=== PATIENT | male | born 1945 | race Caucasian/White ===

== ENCOUNTER 2018-06-26 15:04 | Emergency (ER) | payer MEDICARE, OTHER, SELFPAY ==
[2018-06-26 15:15] VITALS: BP 207/100; PULSE 87; RESP 15; TEMP 36.8; O2SAT 100; BMI 27.8
--- NOTE | 2018-06-26 15:22 | DI.RAD.S_ITS ---
PROCEDURE: XR CHEST 1V INDICATIONS: chest pain TECHNIQUE: One view of the chest was acquired. COMPARISON: [facility], , CHEST 1 VIEW, 01/01/2017, 0:30. FINDINGS: Surgical changes and devices: None. Lungs and pleura: No pleural effusions or pneumothorax. Calcified granuloma in right upper lung field is again seen. Increased interstitial lung markings in bilateral lung simeon are noted suggestive of pulmonary vascular congestion and mild pulmonary edema. Mediastinum: Mediastinal contours appear normal. Heart size is enlarged. Bones and chest wall: No suspicious bony lesions. Overlying soft tissues appear unremarkable. IMPRESSION: Pulmonary vascular congestion and suggestion of mild pulmonary edema. No definite focal infiltrate or gross pneumothorax. Dictated by: Mj Engel M.D. on 06/26/2018 at 15:44 Approved by: Mj Engel M.D. on 06/26/2018 at 15:51
[2018-06-26 15:31] VITALS: BP 206/101; PULSE 114; RESP 19; O2SAT 97
[2018-06-26 15:33] LABS: Add Manual Diff / Slide Review NO; Basophils Percent Auto 0.4 % (0-2); Eosinophils Percent Auto 1.5 % (2-4); Hematocrit 38.4 % (41-53); Hemoglobin 12.5 g/dL (13.5-17.5); Lymphocytes Percent Auto 15.5 % (25-40); Mean Corpuscular HGB Conc 32.5 % (30-36); Mean Corpuscular Hemoglobin 28.5 PG (26-34); Mean Corpuscular Volume 87.6 fL (80-100); Monocytes Percent Auto 10.5 % (3-14); Neutrophils Absolute Auto 8700 /uL (3000-5900); Neutrophils Percent Auto 72.1 % (50-75); Platelet Count 332 X10^3/uL (150-400); Red Blood Cell Count 4.38 X10^6/uL (4.5-5.9); Red Cell Distribution Width 13.5 % (11.6-14.8)
[2018-06-26] MEDS: SODIUM CHLORIDE 0.9% 1,000 ML 150 ML IV (15:35)
[2018-06-26] MEDS: ONDANSETRON 4 MG/2 ML INJ IV (15:35)
[2018-06-26 15:37] VITALS: BP 206/106; PULSE 102; RESP 18; O2SAT 100
--- NOTE | 2018-06-26 15:41 | PC.NURSE ---
sent from walk in clinic, reports , pt has been having diarrhea for 2 weeks, vomiting last week, also reports, wakes up with left arm pain, usually lasting for 15 minutes, better with resting. denies trauma. on arrival pt with nausea and vomiting, medicated for comfort. skin diaphoretic. pt remain alert and awake. monitor noted st depression, repeat ekg in progress at this time.
--- NOTE | 2018-06-26 15:42 | ED_ITS ---
HPI - Nausea/Vomiting/Diarrhea <Lenora Lomeli PA-C - Last Filed: 06/26/18 19:11> General Chief complaint: Nausea/Vomiting/Diarrhea Stated complaint: DIARRHEA, GENERAL MALAISE Time Seen by Provider: 06/26/18 15:15 Source: patient Mode of arrival: ambulatory Limitations: no limitations History of Present Illness HPI Narrative: This 73-year-old male comes in today due to persistent diarrhea for 2 weeks along with intermittent vomiting (he had not vomited in the last few days but started again prior to arrival here). He mentioned to nursing that he has been having some intermittent pain in his left arm which has mainly been present when he wakes up for about 15-20 minutes. He states it radiates down from his shoulder into all of the fingers. This has been present for 2 weeks also, not present now. Has happened occasionally when not at rest. He states there are no exacerbating features such as moving the arm or walking. He states that in addition to the nausea, vomiting, and diarrhea, he had onset of cold symptoms at the same time with congestion and cough. He denies any chest pain, abdominal pain, dyspnea, or wheeze. He denies any neck pain. He denies any new pain in his other extremities, no new swelling. He states that the diarrhea will occur 4-5 times daily if he does not take Imodium. Imodium does help (he took it this a.m. and no diarrhea). He has not had any blood in the stools. He has not had fever. States he has had chills intermittently. He denies any recent travel or exposures. He is not on any new medications aside from gabapentin which was started a month ago for chronic back pain which has not worsened. He has not taken his blood pressure medications today but states he is otherwise compliant. Related Data Home Medications Medication Instructions Recorded Confirmed aspirin 81 mg PO DAILY #0 11/16/16 06/26/18 atorvastatin [Lipitor] 10 mg PO DAILY #0 11/16/16 06/26/18 losartan [Cozaar] 100 mg PO DAILY #0 11/16/16 06/26/18 sitagliptin [Januvia] 100 mg PO DAILY #0 11/16/16 06/26/18 carvedilol [Coreg] 12.5 mg PO BID #0 01/01/17 06/26/18 A-C-E-zinc ox-cupric ox-lutein 1 tab PO DAILY 06/26/18 06/26/18 [[facility]] Contour Test Strips 06/26/18 06/26/18 Probiotic 1 dose PO DIRECTED 06/26/18 06/26/18 acetaminophen [Tylenol 8 Hour] 2 tab PO Q8H 06/26/18 06/26/18 docusate sodium [Stool Softener] 100 mg PO BID 06/26/18 06/26/18 gabapentin 300 mg PO BEDTIME 06/26/18 06/26/18 hydrocodone-acetaminophen 1 - 2 tab PO BEDTIME PRN 06/26/18 06/26/18 ketoconazole 1 applic TOPICAL DAILY 06/26/18 06/26/18 metformin 1,500 mg PO QPM 06/26/18 06/26/18 metformin [Glucophage XR] 1,000 mg PO QAM 06/26/18 06/26/18 naproxen sodium [Aleve] 440 mg PO DAILY PRN 06/26/18 06/26/18 nifedipine 60 mg PO BID 06/26/18 06/26/18 Previous Rx's Medication Instructions Recorded ondansetron [Zofran ODT] 4 mg PO Q6-8H PRN #10 tab 06/26/18 Allergies Allergy/AdvReac Type Severity Reaction Status Date / Time iodine AdvReac Mild NAUSEA Verified 06/26/18 15:15 Review of Systems <Lenora Lomeli PA-C - Last Filed: 06/26/18 19:11> Review of Systems All systems reviewed & are unremarkable except as noted in HPI and below Exam <Lenora Lomeli PA-C - Last Filed: 06/26/18 19:11> Narrative Exam Narrative: GENERAL APPEARANCE: Patient initally wretching, mildly diaphoretic, joking with me. Following Zofran patient appears comfortable HEENT: PERRL, EOMI, no scleral icterus NECK: Supple LUNGS: Somewhat coarse breath sounds at the bases, no wheeze, no cough on exam CHEST: Non tender to palpation HEART: Rate and rhythm regular, normal S1 and S2, no S3 or S4. ABDOMEN: Soft, nontender, nondistended, bowel sounds present x 4 quadrants, no masses palpable EXTREMITIES: Trace symmetric pitting, no cyanosis, no calf tenderness DERMATOLOGIC: No jaundice or exanthem NEUROLOGIC: Alert and oriented with normal speech and coordination Initial Vital Signs Initial Vital Signs: Vital Signs Temperature 98.3 F 06/26/18 15:15 Pulse Rate 87 06/26/18 15:15 Respiratory Rate 15 06/26/18 15:15 Blood Pressure 207/100 H 06/26/18 15:15 Pulse Oximetry 100 06/26/18 15:15 <Padmini Baxter DO - Last Filed: 06/30/18 04:16> Initial Vital Signs Initial Vital Signs: Vital Signs Temperature 98.3 F 06/26/18 15:15 Pulse Rate 87 06/26/18 15:15 Respiratory Rate 15 06/26/18 15:15 Blood Pressure 207/100 H 06/26/18 15:15 Pulse Oximetry 100 06/26/18 15:15 Course <Lenora Lomeli PA-C - Last Filed: 06/26/18 19:11> Additional Information: EKGs and lab work reviewed with Dr. Baxter who also saw patient and agrees with plan to d/c home. Patient reports feeling much better. He has not had any recurrent vomiting. He has had these other ongoing symptoms intermittently for a couple of weeks, no clear acute findings today. He agrees to follow up with PCP in the next few days for further workup, and promises to return if any acutely worsening symptoms again in the interim. Orders Ordered: Discontinued Medications Sodium Chloride (Normal Saline 0.9%) 1,000 mls @ 150 mls/hr IV CONT SUSY Last Infusion: 06/26/18 17:11 Dose: 0 mls/hr Infusion: 06/26/18 15:45 Dose: 999 mls/hr Admin: 06/26/18 15:35 Dose: 150 mls/hr Sodium Chloride (Normal Saline 0.9%) 1,000 mls @ 1,000 mls/hr IV BOLUS ONE Stop: 06/26/18 16:46 Last Admin: 06/26/18 17:12 Dose: Metoprolol Tartrate (Lopressor) 5 mg IV NOW ONE Stop: 06/26/18 15:53 Last Admin: 06/26/18 16:02 Dose: 5 mg Ondansetron HCl (Zofran) 4 mg IV NOW ONE Stop: 06/26/18 15:23 Last Admin: 06/26/18 15:35 Dose: 4 mg Vital Signs - 8 hr 06/26/18 15:15 06/26/18 15:31 06/26/18 15:37 Temperature 98.3 F Pulse Rate 87 114 H 102 H Respiratory Rate 15 19 18 Blood Pressure 207/100 H Blood Pressure [Right Arm] 206/101 H 206/106 H Pulse Oximetry 100 97 100 06/26/18 16:08 06/26/18 16:44 06/26/18 17:46 Temperature Pulse Rate 82 79 77 Respiratory Rate 18 14 18 Blood Pressure 176/93 H Blood Pressure [Right Arm] 180/84 H 179/93 H Pulse Oximetry 94 98 <Padmini Baxter DO - Last Filed: 06/30/18 04:16> Orders Ordered: Discontinued Medications Sodium Chloride (Normal Saline 0.9%) 1,000 mls @ 150 mls/hr IV CONT SUSY Last Infusion: 06/26/18 17:11 Dose: 0 mls/hr Infusion: 06/26/18 15:45 Dose: 999 mls/hr Admin: 06/26/18 15:35 Dose: 150 mls/hr Sodium Chloride (Normal Saline 0.9%) 1,000 mls @ 1,000 mls/hr IV BOLUS ONE Stop: 06/26/18 16:46 Last Admin: 06/26/18 17:12 Dose: Metoprolol Tartrate (Lopressor) 5 mg IV NOW ONE Stop: 06/26/18 15:53 Last Admin: 06/26/18 16:02 Dose: 5 mg Ondansetron HCl (Zofran) 4 mg IV NOW ONE Stop: 06/26/18 15:23 Last Admin: 06/26/18 15:35 Dose: 4 mg Vital Signs - 8 hr 06/26/18 15:15 06/26/18 15:31 06/26/18 15:37 Temperature 98.3 F Pulse Rate 87 114 H 102 H Respiratory Rate 15 19 18 Blood Pressure 207/100 H Blood Pressure [Right Arm] 206/101 H 206/106 H Pulse Oximetry 100 97 100 06/26/18 16:08 06/26/18 16:44 06/26/18 17:46 Temperature Pulse Rate 82 79 77 Respiratory Rate 18 14 18 Blood Pressure 176/93 H Blood Pressure [Right Arm] 180/84 H 179/93 H Pulse Oximetry 94 98 MDM - Nausea/Vomiting/Diarrhea <Lenora Lomeli PA-C - Last Filed: 06/26/18 19:11> Lab Data Result diagrams: 06/26/18 15:30 06/26/18 15:30 Lab Results 06/26/18 06/26/18 06/26/18 Range/Units 15:30 15:30 15:30 WBC 12.0 H (4.5-11.0) X10^3/uL RBC 4.38 L (4.5-5.9) X10^6/uL Hgb 12.5 L (13.5-17.5) g/dL Hct 38.4 L (41-53) % MCV 87.6 (80-100) fL MCH 28.5 (26-34) PG MCHC 32.5 (30-36) % RDW 13.5 (11.6-14.8) % Plt Count 332 (150-400) X10^3/uL Neut % (Auto) 72.1 (50-75) % Lymph % (Auto) 15.5 L (25-40) % [place] % (Auto) 10.5 (3-14) % Eos % (Auto) 1.5 L (2-4) % Baso % (Auto) 0.4 (0-2) % Neut # (Auto) 8700 H (5599-2365) /uL Sodium 144 (137-145) mmol/L Potassium 4.9 (3.4-5.1) mmol/L Chloride 104 (98-107) mmol/L Carbon Dioxide 25 (22-32) mmol/L BUN 21 H (9-20) mg/dL Creatinine 1.70 H (0.66-1.25) mg/dL Estimated GFR 39.9 L (>60) mL/min BUN/Creatinine Ratio 12.4 (6-22) Glucose 133 H (80-110) mg/dL Lactate (0.7-2.1) mmol/L Calcium 10.0 (8.4-10.2) mg/dL Magnesium 1.6 (1.6-2.3) mg/dL Total Bilirubin 0.4 (0.2-1.3) mg/dL AST 18 (17-59) IU/L ALT 23 (21-72) IU/L Alkaline Phosphatase 105 (38-126) U/L Total Creatine Kinase 56 (55-170) U/L CK-MB (CK-2) TNP CK-MB (CK-2) Rel Index TNP Troponin I < 0.012 (0.01-0.034) ng/mL B-Natriuretic Peptide 185.0 H (<100) Total Protein 8.8 H (6.3-8.2) g/dL Albumin 4.9 (3.5-5.0) g/dL Globulin 3.9 (1.7-4.1) g/dL Albumin/Globulin Ratio 1.3 (1.0-2.8) Lipase 211 (23-300) U/L 06/26/18 Range/Units 15:50 WBC (4.5-11.0) X10^3/uL RBC (4.5-5.9) X10^6/uL Hgb (13.5-17.5) g/dL Hct (41-53) % MCV (80-100) fL MCH (26-34) PG MCHC (30-36) % RDW (11.6-14.8) % Plt Count (150-400) X10^3/uL Neut % (Auto) (50-75) % Lymph % (Auto) (25-40) % [place] % (Auto) (3-14) % Eos % (Auto) (2-4) % Baso % (Auto) (0-2) % Neut # (Auto) (0322-0424) /uL Sodium (137-145) mmol/L Potassium (3.4-5.1) mmol/L Chloride (98-107) mmol/L Carbon Dioxide (22-32) mmol/L BUN (9-20) mg/dL Creatinine (0.66-1.25) mg/dL Estimated GFR (>60) mL/min BUN/Creatinine Ratio (6-22) Glucose (80-110) mg/dL Lactate 1.8 (0.7-2.1) mmol/L Calcium (8.4-10.2) mg/dL Magnesium (1.6-2.3) mg/dL Total Bilirubin (0.2-1.3) mg/dL AST (17-59) IU/L ALT (21-72) IU/L Alkaline Phosphatase (38-126) U/L Total Creatine Kinase (55-170) U/L CK-MB (CK-2) CK-MB (CK-2) Rel Index Troponin I (0.01-0.034) ng/mL B-Natriuretic Peptide (<100) Total Protein (6.3-8.2) g/dL Albumin (3.5-5.0) g/dL Globulin (1.7-4.1) g/dL Albumin/Globulin Ratio (1.0-2.8) Lipase (23-300) U/L Urine Dip Bedside Urine Glucose Negative Bedside Urine Bilirubin - Negative Bedside Urine Ketone +/- 5 Urine Specific [place] 1.020 Bedside Urine Occult Blood - Negative Bedside Urine pH 6.5 Bedside Urine Protein + 30 Bedside Urine Urobilinogen - Negative Bedside Urine Nitrite - Negative Bedside Urine Leukocytes - Negative Esterase Imaging Data Chest x-ray: Radiologist's impression: [address] [address] XRay Report Signed Patient: Carlos Olea PMR#: [id number] : [id number]:[id number] Age/Sex: 73 / MDate of Service: 06/26/18 Loc: ED Accession Number: [id number] Procedure: XR chest 1V Ordering Provider: Padmini Baxter D.O. PROCEDURE: XR CHEST 1V INDICATIONS: chest pain TECHNIQUE: One view of the chest was acquired. COMPARISON: [facility], CHEST 1 VIEW, 01/01/2017, 0:30. FINDINGS: Surgical changes and devices: None. Lungs and pleura: No pleural effusions or pneumothorax. Calcified granuloma in right upper lung field is again seen. Increased interstitial lung markings in bilateral lung simeon are noted suggestive of pulmonary vascular congestion and mild pulmonary edema. Mediastinum: Mediastinal contours appear normal. Heart size is enlarged. Bones and chest wall: No suspicious bony lesions. Overlying soft tissues appear unremarkable. IMPRESSION: Pulmonary vascular congestion and suggestion of mild pulmonary edema. No definite focal infiltrate or gross pneumothorax. Dictated by: Mj Engel M.D. on 06/26/2018 at 15:44 Approved by: Mj Engel M.D. on 06/26/2018 at 15:51 ECG Data Attestation: I personally reviewed and interpreted this ECG as follows: <Padmini Baxter DO - Last Filed: 06/30/18 04:16> Lab Data Attestation: I reviewed the patient's lab results. Lab Results 06/26/18 06/26/18 06/26/18 Range/Units 15:30 15:30 15:30 WBC 12.0 H (4.5-11.0) X10^3/uL RBC 4.38 L (4.5-5.9) X10^6/uL Hgb 12.5 L (13.5-17.5) g/dL Hct 38.4 L (41-53) % MCV 87.6 (80-100) fL MCH 28.5 (26-34) PG MCHC 32.5 (30-36) % RDW 13.5 (11.6-14.8) % Plt Count 332 (150-400) X10^3/uL Neut % (Auto) 72.1 (50-75) % Lymph % (Auto) 15.5 L (25-40) % [place] % (Auto) 10.5 (3-14) % Eos % (Auto) 1.5 L (2-4) % Baso % (Auto) 0.4 (0-2) % Neut # (Auto) 8700 H (4307-5501) /uL Sodium 144 (137-145) mmol/L Potassium 4.9 (3.4-5.1) mmol/L Chloride 104 (98-107) mmol/L Carbon Dioxide 25 (22-32) mmol/L BUN 21 H (9-20) mg/dL Creatinine 1.70 H (0.66-1.25) mg/dL Estimated GFR 39.9 L (>60) mL/min BUN/Creatinine Ratio 12.4 (6-22) Glucose 133 H (80-110) mg/dL Lactate (0.7-2.1) mmol/L Calcium 10.0 (8.4-10.2) mg/dL Magnesium 1.6 (1.6-2.3) mg/dL Total Bilirubin 0.4 (0.2-1.3) mg/dL AST 18 (17-59) IU/L ALT 23 (21-72) IU/L Alkaline Phosphatase 105 (38-126) U/L Total Creatine Kinase 56 (55-170) U/L CK-MB (CK-2) TNP CK-MB (CK-2) Rel Index TNP Troponin I < 0.012 (0.01-0.034) ng/mL B-Natriuretic Peptide 185.0 H (<100) Total Protein 8.8 H (6.3-8.2) g/dL Albumin 4.9 (3.5-5.0) g/dL Globulin 3.9 (1.7-4.1) g/dL Albumin/Globulin Ratio 1.3 (1.0-2.8) Lipase 211 (23-300) U/L 06/26/18 Range/Units 15:50 WBC (4.5-11.0) X10^3/uL RBC (4.5-5.9) X10^6/uL Hgb (13.5-17.5) g/dL Hct (41-53) % MCV (80-100) fL MCH (26-34) PG MCHC (30-36) % RDW (11.6-14.8) % Plt Count (150-400) X10^3/uL Neut % (Auto) (50-75) % Lymph % (Auto) (25-40) % [place] % (Auto) (3-14) % Eos % (Auto) (2-4) % Baso % (Auto) (0-2) % Neut # (Auto) (5484-0689) /uL Sodium (137-145) mmol/L Potassium (3.4-5.1) mmol/L Chloride (98-107) mmol/L Carbon Dioxide (22-32) mmol/L BUN (9-20) mg/dL Creatinine (0.66-1.25) mg/dL Estimated GFR (>60) mL/min BUN/Creatinine Ratio (6-22) Glucose (80-110) mg/dL Lactate 1.8 (0.7-2.1) mmol/L Calcium (8.4-10.2) mg/dL Magnesium (1.6-2.3) mg/dL Total Bilirubin (0.2-1.3) mg/dL AST (17-59) IU/L ALT (21-72) IU/L Alkaline Phosphatase (38-126) U/L Total Creatine Kinase (55-170) U/L CK-MB (CK-2) CK-MB (CK-2) Rel Index Troponin I (0.01-0.034) ng/mL B-Natriuretic Peptide (<100) Total Protein (6.3-8.2) g/dL Albumin (3.5-5.0) g/dL Globulin (1.7-4.1) g/dL Albumin/Globulin Ratio (1.0-2.8) Lipase (23-300) U/L Urine Dip Bedside Urine Glucose Negative Bedside Urine Bilirubin - Negative Bedside Urine Ketone +/- 5 Urine Specific [place] 1.020 Bedside Urine Occult Blood - Negative Bedside Urine pH 6.5 Bedside Urine Protein + 30 Bedside Urine Urobilinogen - Negative Bedside Urine Nitrite - Negative Bedside Urine Leukocytes - Negative Esterase ECG Data Attestation: I personally reviewed and interpreted this ECG as follows: Prior ECG tracings: available for review Interpretation: EKG 1.: Normal sinus rhythm ST depression noted his lead 1 to, aVL V4 through V6 LVH strain is noted this is worse than previous EKG is be in [address] elevations no T-wave inversion EKG 2. Sinus rhythm rate 93 similar to previous EKG no change Discharge Plan Departure Patient Disposition: Home Clinical Impression: Vomiting, Hypertension, Arm pain, left Discharge Date/Time: 06/26/18 17:46 Interventions: ED Discharge Assessment Last Done: 06/26/18 17:46 Instructions: DI for Vomiting -- Adult, DI for Arm Pain Activity Restrictions/Additional Instructions: Since you are feeling so much better now, it is okay to return home and monitor. I have sent in a prescription for nausea medication that is the same as what you had in the IV and you can take this as needed. Please drink plenty of clear fluids and eat small amounts of bland food every couple of hours rather than trying to eat larger meals. You should follow up with your PCP in the next couple of days (please call 1st thing in the morning and let them know you were seen in the emergency department) since you have had these symptoms for a couple of weeks and are not getting better. It may be helpful to get some stool studies done, and also you will need further evaluation of your arm pain, which as we talked about could be related to and impingement in your neck or your shoulder. Please return immediately as we discussed if you are feeling acutely worse again in the interim Prescriptions: New ondansetron [Zofran ODT] 4 mg tablet,disintegrating 4 mg PO Q6-8H PRN (Reason: nausea and vomiting) Qty: 10 RF: 0 No Action losartan [Cozaar] 100 MG tablet 100 mg PO DAILY Qty: 0 RF: 0 aspirin 81 MG tablet,delayed release (DR/EC) 81 mg PO DAILY Qty: 0 RF: 0 sitagliptin [Januvia] 100 MG tablet 100 mg PO DAILY Qty: 0 RF: 0 atorvastatin [Lipitor] 10 MG tablet 10 mg PO DAILY Qty: 0 RF: 0 carvedilol [Coreg] 12.5 MG tablet 12.5 mg PO BID Qty: 0 RF: 0 hydrocodone-acetaminophen 5-325 mg tablet 1 - 2 tab PO BEDTIME PRN (Reason: Back Pain) RF: 0 gabapentin 300 mg capsule 300 mg PO BEDTIME RF: 0 nifedipine 60 mg tablet extended release 60 mg PO BID RF: 0 metformin [Glucophage XR] 500 mg tablet extended release 24 hr 1,000 mg PO QAM RF: 0 naproxen sodium [Aleve] 220 mg Capsule 440 mg PO DAILY PRN (Reason: pain) RF: 0 Contour Test Strips RF: 0 acetaminophen [Tylenol 8 Hour] 650 mg Tablet Extended Release 2 tab PO Q8H RF: 0 docusate sodium [Stool Softener] 100 mg Capsule 100 mg PO BID RF: 0 ketoconazole 2 % Cream 1 applic TOPICAL DAILY RF: 0 metformin 500 mg tablet extended release 24 hr 1,500 mg PO QPM RF: 0 A-C-E-zinc ox-cupric ox-lutein [[facility]] 7,160 unit-113 mg-100 unit Tablet 1 tab PO DAILY RF: 0 Probiotic 1 dose PO DIRECTED RF: 0 Referrals: Val Daniel PA-C [Primary Care Provider] - <Padmini Baxter DO - Last Filed: 06/30/18 04:16> Cosign ED Attending Mauraature Attestation: I was immediately available in the department for consultation. Documentation has been reviewed. I agree with assessment and plan.
[2018-06-26 15:47] LABS: Alanine Aminotransferase 23 IU/L (21-72); Albumin 4.9 g/dL (3.5-5.0); Albumin Globulin Ratio 1.3 (1.0-2.8); Alkaline Phosphatase 105 U/L (38-126); Aspartate Aminotransferase 18 IU/L (17-59); BUN Creatinine Ratio 12.4 (6-22); Bilirubin Total 0.4 mg/dL (0.2-1.3); Blood Urea Nitrogen 21 mg/dL (9-20); Carbon Dioxide 25 mmol/L (22-32); Chloride 104 mmol/L (98-107); Creatine Kinase 56 U/L (55-170); Estimated Glomerular Filt Rate 39.9 mL/min (>60); Globulin 3.9 g/dL (1.7-4.1); Glucose 133 mg/dL (80-110); HEMOLYSIS < 15 (0-50); Lipase 211 U/L (23-300); Magnesium 1.6 mg/dL (1.6-2.3); Potassium 4.9 mmol/L (3.4-5.1); Sodium 144 mmol/L (137-145); Total Protein 8.8 g/dL (6.3-8.2)
[2018-06-26 15:59] LABS: Troponin I < 0.012 ng/mL (0.01-0.034)
[2018-06-26] MEDS: METOPROLOL TARTRATE 5 MG/5 ML INJ IV (16:02)
[2018-06-26 16:07] LABS: Lactate (Lactic Acid) 1.8 mmol/L (0.7-2.1)
[2018-06-26 16:08] VITALS: BP 180/84; PULSE 82; RESP 18
--- NOTE | 2018-06-26 16:09 | PC.NURSE ---
pt condition improved from zofran, no furthur vomiting, skin warm dry pink, talkative but appropriate. denies cp.sob.nausea or vomiting, no furthur arm pain at this time.
[2018-06-26 16:44] VITALS: BP 179/93; PULSE 79; RESP 14; O2SAT 94
[2018-06-26 17:46] VITALS: BP 176/93; PULSE 77; RESP 18; O2SAT 98
--- NOTE | 2018-06-28 18:22 | PC.NURSE ---
Attempted follow up phone call. No answer at this time
== END 2018-06-26 17:46 | disposition home or self-care (01) ==
PROVIDERS: Emergency Medicine; Emergency Provider Internal Medicine; Family Provider Physician Assistant; PCP Physician Assistant
DX: R11.10 Vomiting, unspecified (principal); I10 Essential (primary) hypertension; M79.602 Pain in left arm
CPT/HCPCS: 36591; 71045; 80053; 81003; 82550; 83605; 83690; 83735; 83880; 84484; 85025; 93005; 96361; 96374; 96375; 99284; 99285; J2405

== ENCOUNTER → 2018-07-21 08:24 | Outpatient (CLI) | payer MEDICARE, OTHER, SELFPAY ==
[2018-07-21 10:32] LABS: Adenovirus F 40/41 Not Detected (Not Detect); Astrovirus Not Detected (Not Detect); Campylobacter Not Detected (Not Detect); Clostridium difficile toxin AB Not Detected (Not Detect); Cryptosporidium Not Detected (Not Detect); Cyclospora cayetanensis Not Detected (Not Detect); Entamoeba histolytica Not Detected (Not Detect); Enteroaggregative E.coli Not Detected (Not Detect); Enteropathogenic E.coli Not Detected (Not Detect); Enterotoxigenic E.coli It/st Not Detected (Not Detect); Giardia lamblia Not Detected (Not Detect); Norovirus GI/GII Not Detected (Not Detect); Plesiomonsa shigelloides Not Detected (Not Detect); Rotavirus A Not Detected (Not Detect); Salmonella Not Detected (Not Detect); Sapovirus Not Detected (Not Detect); Shiga-like toxin-prod E.coli Not Detected (Not Detect); Shigella/Enteroinvasive E.coli Not Detected (Not Detect); Vibrio Not Detected (Not Detect); Vibrio cholerae Not Detected (Not Detect); Yersinia enterocolitica Not Detected (Not Detect)
== END ==
PROVIDERS: Family Provider Physician Assistant; PCP Physician Assistant; Visit Provider Physician Assistant
DX: N18.3 Chronic kidney disease, stage 3 (moderate) (principal)
CPT/HCPCS: 87507

== ENCOUNTER → 2018-07-24 06:37 | Outpatient (CLI) | payer MEDICARE, OTHER, SELFPAY ==
--- NOTE | 2018-07-24 | DI.US.S_ITS ---
PROCEDURE: US CHEST COMPARISON: None. INDICATIONS: LATERAL LEFT CHEST WALL LUMP FINDINGS: 5.3 x 1.6 x 5.1 cm isoechoic, avascular mass present within the lateral left chest corresponding to the palpable abnormality. IMPRESSION: Solid mass corresponding to the left lateral chest palpable abnormality. Findings are nonspecific and differential includes both benign and malignant neoplastic processes. If indicated soft tissue MRI could be performed for further characterization. Dictated by: Stanislaw Crandall [facility] Interpreted: Mj Engel MD on 07/24/2018 at 9:04 Approved by: Mj Engel M.D. on 07/24/2018 at 11:17
== END ==
PROVIDERS: Family Provider Physician Assistant; PCP Physician Assistant; Visit Provider Physician Assistant
DX: R22.2 Localized swelling, mass and lump, trunk (principal)
CPT/HCPCS: 76604

== ENCOUNTER → 2018-08-01 13:33 | Outpatient (CLI) | payer MEDICARE, OTHER, SELFPAY ==
[2018-08-01 15:04] LABS: BUN Creatinine Ratio 16.9 (6-22); Blood Urea Nitrogen 22 mg/dL (9-20); Estimated Glomerular Filt Rate 54.4 mL/min (>60)
== END ==
PROVIDERS: PCP Physician Assistant; Visit Provider Physician Assistant
DX: R22.2 Localized swelling, mass and lump, trunk (principal)
CPT/HCPCS: 36415; 82565; 84520

== ENCOUNTER → 2018-08-03 08:13 | Outpatient (CLI) | payer MEDICARE, OTHER, SELFPAY ==
--- NOTE | 2018-08-03 08:15 | DI.MRI.S_ITS ---
PROCEDURE: MR CHEST WO CON INDICATIONS: LOCALIZED SWELLING, MASS LUMP, TRUNK TECHNIQUE: Axial 2-D FLASH in- and mgc-[id number], axial breath-hold T2 FSE, axial STIR FSE. Intravenous contrast could not be given due to patient's discomfort and choice to decline proceeding with contrast enhancement. COMPARISON: [facility], CR, CHEST 1 VIEW, 01/01/2017, 0:30. [facility], CR, XR CHEST 1V, 06/26/2018, 15:30. [facility], US, US CHEST, 07/24/2018, 7:25. FINDINGS: Image quality: Excellent. Region of interest: Left lateral lower chest wall region palpable masslike structure, which was identified by recent chest ultrasound of that area. This was identified as a discrete abnormality seen on ultrasound 07/24/18, measuring up to approximately 1.6 x 5.1 cm. The MR surface marker was placed above the area of cortical concern, and a ovoid sharply demarcated fatty mass is identified as the underlying cause, measuring up to 5 cm craniocaudad and 1.6 cm in transverse dimension. This has an appearance of a benign lipoma Additionally, there are findings within the visualized chest and upper abdomen indicate presence of extensive metastatic disease. This is considered unrelated to the benign-appearing fatty mass discussed above. Within the lung parenchyma multifocal fluid rich masses are present bilaterally, within the upper, mid and lower lungs, numerous. The largest mass is seen at the left posterior chest pleural surface margin, centered within the lung parenchyma peripherally, measuring up to 2.4 cm in maximal dimension, craniocaudad. The numerous additional pulmonary lesions range in size from several millimeters to 1.5 cm. Within the visualized abdomen note is made of moderate bilateral hydronephrosis, partially visualized, greater on the left than the right. There also is a suprarenal mass on the left, likely adrenal in position, and measuring up to 4.6 x 4.5 cm. Posterior to the upper third of the left kidney has a rounded mildly lobulated fluid rich mass that appears solid, measuring up to 5.9 cm craniocaudad and 6.5 cm transverse. Bones: Nearby rib structures adjacent to the fatty mass along the lateral lower left chest wall demonstrate normal overall marrow signal. However, within the what appears to be the L2 vertebral body marrow space centered to left of midline is a infiltrative fluid rich region of marrow space likely osseous metastatic disease, partially visualized. A pathologic fracture is not associated. IMPRESSION: 1. This study was originally intended to be performed without and with contrast but the patient reported significant back pain and declined to proceed with contrast infusion. 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 2. There are extensive additional unexpected findings indicating presence of extensive metastatic disease in this patient. These include multiple lung masses, a large left adrenal mass, a large rounded mass posterior to the upper third of the left kidney, bilateral hydronephrosis, and the marrow space abnormality and what appears to be the left lateral aspect of L2 suspicious for infiltrative malignancy in this clinical circumstance. 3. Contrast enhanced chest abdomen and pelvis staging CT is recommended. These findings and recommendations will be conveyed to the ordering health care provider who is not currently available for further discussion.. Dictated by: Rod Laura M.D. on 08/03/2018 at 12:16 Approved by: Rod Laura M.D. on 08/03/2018 at 12:55
== END ==
PROVIDERS: PCP Physician Assistant; Visit Provider Physician Assistant
DX: R22.2 Localized swelling, mass and lump, trunk (principal); N28.89 Other specified disorders of kidney and ureter; N13.30 Unspecified hydronephrosis; R91.8 Other nonspecific abnormal finding of lung field; E27.9 Disorder of adrenal gland, unspecified; M54.9 Dorsalgia, unspecified
CPT/HCPCS: 71550

== ENCOUNTER → 2018-08-07 12:12 | Outpatient (CLI) | payer MEDICARE, OTHER, SELFPAY ==
--- NOTE | 2018-08-07 12:14 | DI.MRI.S_ITS ---
PROCEDURE: MR LUMBAR SPINE WO/W CON INDICATIONS: CORD COMPRESSION TECHNIQUE: Noncontrast sagittal T1 spin echo and T2 fast spin echo, sagittal STIR, axial T1 and T2 fast spin echo through the lumbar spine. In cases with scoliosis, additional coronal T2 fast spin echo may be performed. After the administration of contrast, sagittal and axial T1 spin echo with fat saturation through the lumbar spine. COMPARISON: [facility], , L-SPINE WITHOUT CONTRAST, 07/14/2016, 8:12. FINDINGS: Image quality: Excellent. Alignment and curvature: There is trace retrolisthesis of L2 on L3, L3 on L4, L5 on S1, slightly progressive L5-S1, compared to prior exam. Marrow: Interval since the prior exam, there has been a diffuse appearance of hypointense T1 and T2 signal within the L2 vertebral body. It is relatively hyperintense on STIR and demonstrate slight enhancement. Minimal reactive endplate changes are present at L2-3, L3-4, L4-5 and L5-S1. No acute vertebral body compression fractures. No suspicious marrow enhancement. Spinal cord: Conus medullaris terminates at the L2 level. Visualized spinal cord demonstrates normal signal, without suspicious enhancement. Paraspinous soft tissues: No paravertebral masses or abnormal enhancement. There is marked bilateral hydronephrosis. Discs: Moderate to severe desiccation is present throughout the lumbar spine, most notable at L5-S1. L1-L2: Mild disc bulge with mild spinal stenosis. No foraminal narrowing. Facet and ligamentum flavum hypertrophy are present. No interval change. L2-L3: Mild disc bulge with minimal canal narrowing. Mild left foraminal narrowing with facet and ligamentum flavum hypertrophy. No interval change. L3-L4: Mild disc bulge with mild spinal stenosis. There is moderate bilateral foraminal narrowing, progressive compared to prior exam. Facet/ligamentum flavum hypertrophy are present. L4-L5: Mild disc bulge with minimal spinal stenosis. There is moderate left and [id number] right foraminal narrowing, slightly progressive compared to prior exam. Facet and ligamentum flavum hypertrophy are present. L5-S1: Mild disc bulge without spinal stenosis. There is severe lateral foraminal narrowing with nerve root flattening, progressive compared to prior exam. Facet and ligamentum flavum hypertrophy are present. IMPRESSION: 1. Multilevel degenerative changes denser areas of interval progression as above. 2. Multilevel foraminal narrowing most severe at L5-S1 secondary to facet/ligamentum flavum arthropathy as well as retrolisthesis. 3. Abnormal marrow signal within the L2 vertebral body with slight enhancement. This is concerning for metastatic focus. 4. There is significant bilateral partially visualized hydronephrosis and hydroureter. Recommend followup CT abdomen and pelvis imaging for evaluation of cause of obstruction. It is noted that other concerning signs of neoplastic disease are identified on the 08/03/18 MR chest exam. Dictated by: Noy Perez M.D. on 08/07/2018 at 14:41 Approved by: Noy Perez M.D. on 08/07/2018 at 15:35
== END ==
PROVIDERS: PCP Physician Assistant
DX: G95.20 Unspecified cord compression (principal); M51.36 Other intervertebral disc degeneration, lumbar region; M51.37 Other intervertebral disc degeneration, lumbosacral region; M48.061 Spinal stenosis, lumbar region without neurogenic claudication; M48.07 Spinal stenosis, lumbosacral region; M47.817 Spondylosis without myelopathy or radiculopathy, lumbosacral region; M43.17 Spondylolisthesis, lumbosacral region; N13.30 Unspecified hydronephrosis; N13.4 Hydroureter
CPT/HCPCS: 72158; A9579

== ENCOUNTER 2018-08-16 15:47 | Emergency (ER) | payer MEDICARE, OTHER, SELFPAY ==
[2018-08-16 15:52] VITALS: BP 144/97; PULSE 114; RESP 18; TEMP 36.7; O2SAT 100; BMI 26.4
--- NOTE | 2018-08-16 16:29 | ED_ITS ---
HPI - Male Genitourinary <LA Dupont - Last Filed: 08/16/18 21:33> General Chief complaint: Urogenital-Male Stated complaint: STATES LEFT KIDNEY NOT WORKING Time Seen by Provider: 08/16/18 16:26 Source: patient Mode of arrival: ambulatory Limitations: no limitations History of Present Illness HPI Narrative: 73-year-old male with history of lung cancer and is a nonsmoker. He was sent over here from Oncology office for further evaluation. He received PET scan that was ordered from oncology and the PET scan showed concern for bilateral renal occlusion as he did not appear there was much renal function or urine production. patient states he has been urinating today. He denies any flank pain. No fevers or chills. No abdominal pain. Positive p.o. intake. There is concern that he needs to be sent to Urology for immediate renal stents. Related Data Home Medications Medication Instructions Recorded Confirmed atorvastatin [Lipitor] 10 mg PO DAILY #0 11/16/16 08/16/18 losartan [Cozaar] 100 mg PO DAILY #0 11/16/16 08/16/18 sitagliptin [Januvia] 100 mg PO DAILY #0 11/16/16 08/16/18 carvedilol [Coreg] 25 mg PO QAM #0 01/01/17 08/16/18 Contour Test Strips 06/26/18 08/16/18 Probiotic 1 dose PO DIRECTED 06/26/18 08/16/18 docusate sodium [Stool Softener] 100 mg PO BID 06/26/18 08/16/18 ketoconazole 1 applic TOPICAL DAILY 06/26/18 08/16/18 metformin 1,500 mg PO QPM 06/26/18 08/16/18 metformin [Glucophage XR] 1,000 mg PO QAM 06/26/18 08/16/18 nifedipine 60 mg PO BID 06/26/18 08/16/18 hydrocodone-acetaminophen 10 - 325 mg PO Q6H PRN 08/07/18 08/16/18 acetaminophen 1,000 mg PO Q4H PRN MDD 4000 mg 08/16/18 08/16/18 aspirin 81 mg PO DAILY 08/16/18 08/16/18 carvedilol 12.5 mg PO QPM 08/16/18 08/16/18 Allergies Allergy/AdvReac Type Severity Reaction Status Date / Time iodine AdvReac Mild NAUSEA Verified 08/16/18 15:52 Review of Systems <LA Dupont - Last Filed: 08/16/18 21:33> Review of Systems All systems reviewed & are unremarkable except as noted in HPI and below Constitutional Denies chills, Denies fever(s), Denies lethargy and Denies weakness Eyes Denies change in vision, Denies eye discharge, Denies irritation and Denies loss of vision ENT Ears, Nose, Mouth, and Throat: Denies change in voice, Denies neck pain and Denies sore throat Cardiovascular Denies chest pain, Denies irregular heart rhythm, Denies lightheadedness, Denies palpitations, Denies dyspnea, Denies dyspnea on exertion and Denies orthopnea Respiratory Denies cough, Denies dyspnea, Denies dyspnea on exertion and Denies wheezing Gastrointestinal Gastrointestinal: Denies abdominal pain, Denies change in bowel habits, Denies diarrhea, Denies nausea and Denies vomiting Genitourinary Comments: renal occlusion and concerned for decreased renal function seen on PET scan Musculoskeletal Denies neck pain Integumentary/Breasts Denies pruritus, Denies erythema, Denies rash and Denies wounds Neurologic Denies confusion, Denies loss of vision and Denies weakness Psychiatric Denies anxiety, Denies confusion, Denies depression, Denies homicidal ideation and Denies suicidal ideation Endocrine Denies palpitations Allergic/Immunologic Denies wheezing Exam <LA Dupont - Last Filed: 08/16/18 21:33> Initial Vital Signs Initial Vital Signs: Vital Signs Temperature 98.0 F 08/16/18 15:52 Pulse Rate 114 H 08/16/18 15:52 Respiratory Rate 18 08/16/18 15:52 Blood Pressure 144/97 H 08/16/18 15:52 Pulse Oximetry 100 08/16/18 15:52 Const General: cooperative and well developed Nutritional Appearance: well nourished Orientation: alert, awake, oriented x3 and not confused HENNV Mouth: oral mucosae normal, oropharynx normal and moist mucous membranes Eyes Conjunctivae: conjunctivae normal Sclera: sclerae normal Pupils: PERRL EOM: EOM intact bilaterally Resp Effort & Inspection: normal respiratory effort, able to speak in complete sentences, no respiratory distress and no use of accessory muscles Auscultation: clear to auscultation bilaterally, no rales, no rhonchi and no wheezes Cardio Rate: regular rate Rhythm: regular rhythm Heart Sounds: no click, no gallops, no murmurs and no rubs Pulses: normal peripheral pulses Skin General: no rashes or lesions noted, No jaundice and No petechiae Neuro General: alert, oriented x3, gait normal and no focal motor deficits Speech: speech normal Extrem Other: <Estrella Gardner DO - Last Filed: 08/17/18 07:23> Initial Vital Signs Initial Vital Signs: Vital Signs Temperature 98.0 F 08/16/18 15:52 Pulse Rate 114 H 08/16/18 15:52 Respiratory Rate 18 08/16/18 15:52 Blood Pressure 144/97 H 08/16/18 15:52 Pulse Oximetry 100 08/16/18 15:52 Course <LA Dupont - Last Filed: 08/16/18 21:33> Orders Ordered: Discontinued Medications Hydrocodone Bitart/Acetaminophen ([place] 5/325) 2 tab PO NOW ONE Stop: 08/16/18 18:53 Last Admin: 08/16/18 18:57 Dose: 2 tab Vital Signs - 8 hr 08/16/18 15:52 08/16/18 19:08 Temperature 98.0 F Pulse Rate 114 H 96 H Respiratory Rate 18 18 Blood Pressure 144/97 H 153/86 H Pulse Oximetry 100 100 <Estrella Gardner DO - Last Filed: 08/17/18 07:23> Orders Ordered: Discontinued Medications Hydrocodone Bitart/Acetaminophen ([place] 5/325) 2 tab PO NOW ONE Stop: 08/16/18 18:53 Last Admin: 08/16/18 18:57 Dose: 2 tab Vital Signs - 8 hr 08/16/18 15:52 08/16/18 19:08 Temperature 98.0 F Pulse Rate 114 H 96 H Respiratory Rate 18 18 Blood Pressure 144/97 H 153/86 H Pulse Oximetry 100 100 MDM - Male Genitourinary <LA Dupont - Last Filed: 08/16/18 21:33> Lab Data Result diagrams: 08/16/18 16:26 08/16/18 16:26 Lab Results 08/16/18 08/16/18 Range/Units 16:26 16:26 WBC 8.9 (4.5-11.0) X10^3/uL RBC 4.29 L (4.5-5.9) X10^6/uL Hgb 12.3 L (13.5-17.5) g/dL Hct 36.8 L (41-53) % MCV 85.7 (80-100) fL MCH 28.7 (26-34) PG MCHC 33.5 (30-36) % RDW 13.6 (11.6-14.8) % Plt Count 378 (150-400) X10^3/uL Neut % (Auto) 75.4 H (50-75) % Lymph % (Auto) 12.9 L (25-40) % Gaston % (Auto) 11.0 (3-14) % Eos % (Auto) 0.4 L (2-4) % Baso % (Auto) 0.3 (0-2) % Neut # (Auto) 6700 H (6066-4087) /uL Sodium 138 (137-145) mmol/L Potassium 4.4 (3.4-5.1) mmol/L Chloride 96 L (98-107) mmol/L Carbon Dioxide 24 (22-32) mmol/L BUN 28 H (9-20) mg/dL Creatinine 1.60 H (0.66-1.25) mg/dL Estimated GFR 42.8 L (>60) mL/min BUN/Creatinine Ratio 17.5 (6-22) Glucose 236 H (80-110) mg/dL Calcium 9.6 (8.4-10.2) mg/dL Total Bilirubin 0.5 (0.2-1.3) mg/dL AST 20 (17-59) IU/L ALT 15 L (21-72) IU/L Alkaline Phosphatase 97 (38-126) U/L Total Protein 8.0 (6.3-8.2) g/dL Albumin 4.5 (3.5-5.0) g/dL Globulin 3.5 (1.7-4.1) g/dL Albumin/Globulin Ratio 1.3 (1.0-2.8) Urine Dip Bedside Urine Glucose Negative Bedside Urine Bilirubin - Negative Bedside Urine Ketone +/- 5 Urine Specific Bill[place] 1.030 Bedside Urine Occult Blood - Negative Bedside Urine pH 6.0 Bedside Urine Protein + 30 Bedside Urine Urobilinogen - Negative Bedside Urine Nitrite - Negative Bedside Urine Leukocytes - Negative Esterase MDM Narrative Medical decision making narrative: CBCl was obtained and shows mild anemia otherwise is unremarkable. CMP shows elevated glucose of 236 GFR 42.8 and creatinine of 1.6. Discussed case with Dr. Quispe urology at [facility] he states that he does not need to have stents placed emergently. He does recommend urology referral. Patient is referred to [facility] however due to amount of distance he can also pursue to have that urology referral placed through his primary care provider. Patient to call the office tomorrow to schedule follow-up appointment here in the next few days. For any worsening symptoms return to the emergency room. <Estrella Gardner, - Last Filed: 08/17/18 07:23> Lab Data Lab Results 08/16/18 08/16/18 Range/Units 16:26 16:26 WBC 8.9 (4.5-11.0) X10^3/uL RBC 4.29 L (4.5-5.9) X10^6/uL Hgb 12.3 L (13.5-17.5) g/dL Hct 36.8 L (41-53) % MCV 85.7 (80-100) fL MCH 28.7 (26-34) PG MCHC 33.5 (30-36) % RDW 13.6 (11.6-14.8) % Plt Count 378 (150-400) X10^3/uL Neut % (Auto) 75.4 H (50-75) % Lymph % (Auto) 12.9 L (25-40) % Gaston % (Auto) 11.0 (3-14) % Eos % (Auto) 0.4 L (2-4) % Baso % (Auto) 0.3 (0-2) % Neut # (Auto) 6700 H (7572-4690) /uL Sodium 138 (137-145) mmol/L Potassium 4.4 (3.4-5.1) mmol/L Chloride 96 L (98-107) mmol/L Carbon Dioxide 24 (22-32) mmol/L BUN 28 H (9-20) mg/dL Creatinine 1.60 H (0.66-1.25) mg/dL Estimated GFR 42.8 L (>60) mL/min BUN/Creatinine Ratio 17.5 (6-22) Glucose 236 H (80-110) mg/dL Calcium 9.6 (8.4-10.2) mg/dL Total Bilirubin 0.5 (0.2-1.3) mg/dL AST 20 (17-59) IU/L ALT 15 L (21-72) IU/L Alkaline Phosphatase 97 (38-126) U/L Total Protein 8.0 (6.3-8.2) g/dL Albumin 4.5 (3.5-5.0) g/dL Globulin 3.5 (1.7-4.1) g/dL Albumin/Globulin Ratio 1.3 (1.0-2.8) Urine Dip Bedside Urine Glucose Negative Bedside Urine Bilirubin - Negative Bedside Urine Ketone +/- 5 Urine Specific [place] 1.030 Bedside Urine Occult Blood - Negative Bedside Urine pH 6.0 Bedside Urine Protein + 30 Bedside Urine Urobilinogen - Negative Bedside Urine Nitrite - Negative Bedside Urine Leukocytes - Negative Esterase Discharge Plan Departure Patient Disposition: Home Clinical Impression: Acute renal insufficiency Discharge Date/Time: 08/16/18 19:08 Interventions: ED Discharge Assessment Last Done: 08/16/18 19:08 Instructions: Acute Renal Failure Activity Restrictions/Additional Instructions: laboratory results show mild anemia and also show decreased GFR and increased creatinine level. Discussed case with Urology at [facility] does not feel the to need to have renal stents placed her emergently. However it is recommended that you see Urology here in the next few days for re- evaluation. You may follow up with [facility] urology and may call them at the number provided to schedule follow-up appointment. Alternatively could talk to her primary care provider about referral to recommend that you see Urology here in the next few days for further evaluation. For any worsening symptoms return to the emergency room. Prescriptions: No Action losartan [Cozaar] 100 MG tablet 100 mg PO DAILY Qty: 0 RF: 0 sitagliptin [Januvia] 100 MG tablet 100 mg PO DAILY Qty: 0 RF: 0 atorvastatin [Lipitor] 10 MG tablet 10 mg PO DAILY Qty: 0 RF: 0 carvedilol [Coreg] 12.5 MG tablet 25 mg PO QAM Qty: 0 RF: 0 nifedipine 60 mg tablet extended release 60 mg PO BID RF: 0 metformin [Glucophage XR] 500 mg tablet extended release 24 hr 1,000 mg PO QAM RF: 0 Contour Test Strips RF: 0 docusate sodium [Stool Softener] 100 mg Capsule 100 mg PO BID RF: 0 ketoconazole 2 % Cream 1 applic TOPICAL DAILY RF: 0 metformin 500 mg tablet extended release 24 hr 1,500 mg PO QPM RF: 0 Probiotic 1 dose PO DIRECTED RF: 0 hydrocodone-acetaminophen 10-325 mg Tablet 10 - 325 mg PO Q6H PRN (Reason: Breakthrough Pain) RF: 0 carvedilol 12.5 mg tablet 12.5 mg PO QPM RF: 0 aspirin 81 mg Tablet,Delayed Release (Dr/Ec) 81 mg PO DAILY RF: 0 acetaminophen 500 mg Tablet 1,000 mg PO Q4H MDD 4000 mg PRN (Reason: pain) RF: 0 Referrals: [facility] [Provider Group] Val Daniel PA-C [Primary Care Provider] - <Estrella Gardner DO - Last Filed: 08/17/18 07:23> Cosign ED Attending Cosignature Attestation: I was immediately available in the department for consultation. This documentation has been reviewed and I agree with assessment and plan. Supervised by Estrella Gardner DO
[2018-08-16 17:03] LABS: Add Manual Diff / Slide Review NO; Basophils Percent Auto 0.3 % (0-2); Eosinophils Percent Auto 0.4 % (2-4); Hematocrit 36.8 % (41-53); Hemoglobin 12.3 g/dL (13.5-17.5); Lymphocytes Percent Auto 12.9 % (25-40); Mean Corpuscular HGB Conc 33.5 % (30-36); Mean Corpuscular Hemoglobin 28.7 PG (26-34); Mean Corpuscular Volume 85.7 fL (80-100); Neutrophils Absolute Auto 6700 /uL (3000-5900); Neutrophils Percent Auto 75.4 % (50-75); Platelet Count 378 X10^3/uL (150-400); Red Blood Cell Count 4.29 X10^6/uL (4.5-5.9); Red Cell Distribution Width 13.6 % (11.6-14.8); White Blood Cell Count 8.9 X10^3/uL (4.5-11.0)
[2018-08-16 17:13] LABS: Alanine Aminotransferase 15 IU/L (21-72); Albumin 4.5 g/dL (3.5-5.0); Albumin Globulin Ratio 1.3 (1.0-2.8); Alkaline Phosphatase 97 U/L (38-126); Aspartate Aminotransferase 20 IU/L (17-59); BUN Creatinine Ratio 17.5 (6-22); Bilirubin Total 0.5 mg/dL (0.2-1.3); Blood Urea Nitrogen 28 mg/dL (9-20); Calcium 9.6 mg/dL (8.4-10.2); Carbon Dioxide 24 mmol/L (22-32); Chloride 96 mmol/L (98-107); Estimated Glomerular Filt Rate 42.8 mL/min (>60); Globulin 3.5 g/dL (1.7-4.1); Glucose 236 mg/dL (80-110); HEMOLYSIS < 15 (0-50); Potassium 4.4 mmol/L (3.4-5.1); Sodium 138 mmol/L (137-145)
[2018-08-16] MEDS: HYDROCODONE/ACET 5/325 TABLET 2 TAB PO (18:57)
[2018-08-16 19:08] VITALS: BP 153/86; PULSE 96; RESP 18; O2SAT 100
== END 2018-08-16 19:08 | disposition home or self-care (01) ==
PROVIDERS: Emergency Provider Nurse Practitioner Family; Family Provider Physician Assistant; PCP Physician Assistant
DX: N28.9 Disorder of kidney and ureter, unspecified (principal)
CPT/HCPCS: 36415; 80053; 81003; 85025; 99282; 99283

== ENCOUNTER → 2018-09-03 08:00 | Oncology outpatient (ONC) | payer MEDICARE, OTHER, SELFPAY ==
[2018-08-07 09:23] VITALS: BP 150/98; PULSE 95; RESP 18; O2SAT 98
--- NOTE | 2018-08-07 10:10 | P.CONONC_ITS ---
History of Present Illness - Data of Consult Consult date: 08/07/18 Requesting Physician: JOHN Dueñas Primary Care Provider: JOHN Dueñas-C - Consult Narrative Narrative: Carlos JARA is a 73 year old male who is referred for further evaluation of a newly discovered likely metastatic cancer. The patient has a distant history of colon cancer that was diagnosed in 2007. He underwent surgical resection followed by adjuvant Xeloda. He has been followed expectantly since then with routine colonoscopy without any obvious recurrence. He does have some chronic back pain. Over the last several weeks, his back pain has been worsening. He had been taking Vicodin but found that his requirement for pain medication was increasing. It was not lasting as long as previously. He had some radiation of numbness down into the upper parts of his leg. He also noted some generalized weakness so that was more difficult for him to get up from a chair. He had a couple of episodes of fecal incontinence and diarrhea. He has not noted any other areas of pain. 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 He had an MRI to evaluate that. Unfortunately, showed evidence of extensive metastatic disease. It was considered unrelated to his benign appearing lipoma. Within the lung, multifocal masses were present bilaterally within the upper mid and lower lungs. The largest measured 2.4 cm in size. There was bilateral hydronephrosis. He had a suprarenal mass on the left likely in the adrenal gland measuring 4.6 cm. There is also mass in the upper 3rd of the left kidney. It measured 5.9 x 6.5 cm. It appeared that there may have been a mass in the L2 vertebral body as well. He has not yet had any biopsy of any of these lesions. His appetite has been low. He has been losing some weight over the last few weeks. He denies any shortness of breath or cough. He is not having any pain in the chest. His past medical history is notable for colon cancer as described above. He has had chronic back pain. He has a history of spinal meningioma that was resected. He does have a history of type 2 diabetes hypertension and hyperlipidemia. His family history a brother with lung cancer. There is also family history of skin cancers. Social history: He is a retired school principal. He quit smoking about 40 years ago. He is . CC: Darwin Michele, MD Home Medications and Allergies Home Medications Medication Instructions Recorded Confirmed Type atorvastatin [Lipitor] 10 mg PO DAILY #0 11/16/16 06/26/18 History losartan [Cozaar] 100 mg PO DAILY #0 11/16/16 06/26/18 History sitagliptin [Januvia] 100 mg PO DAILY #0 11/16/16 06/26/18 History carvedilol [Coreg] 12.5 mg PO BID #0 01/01/17 06/26/18 History Contour Test Strips 06/26/18 06/26/18 History Probiotic 1 dose PO DIRECTED 06/26/18 06/26/18 History acetaminophen [Tylenol 8 Hour] 2 tab PO Q8H 06/26/18 06/26/18 History docusate sodium [Stool Softener] 100 mg PO BID 06/26/18 06/26/18 History ketoconazole 1 applic TOPICAL DAILY 06/26/18 06/26/18 History metformin 1,500 mg PO QPM 06/26/18 06/26/18 History metformin [Glucophage XR] 1,000 mg PO QAM 06/26/18 06/26/18 History naproxen sodium [Aleve] 440 mg PO DAILY PRN 06/26/18 06/26/18 History nifedipine 60 mg PO BID 06/26/18 06/26/18 History ondansetron [Zofran ODT] 4 mg PO Q6-8H PRN #10 tab 06/26/18 Rx hydrocodone-acetaminophen 10 - 325 mg PO Q6H 08/07/18 08/07/18 History Allergies Allergy/AdvReac Type Severity Reaction Status Date / Time iodine AdvReac Mild NAUSEA Verified 06/26/18 15:15 Medical History - Social History Smoking Status: Never smoker Review of Systems - Patient Self-Reported Symptoms SR Constitution: Weight loss/gain SR Gastrointestinal issues: Poor or no appetite, Nausea, Vomiting SR Musculoskeletal issues: Muscle weakness, Back or neck pain, Difficulty walking Exam - Constitutional positive moderate distress, positive average body habitus, positive chronically ill appearing - Routine HEENT Exam Head: Present: normocephalic, atraumatic Eye: Present: EOMI, PERRL. Absent: conjunctival icterus, scleral injection ENT: Present: mucous membranes moist, oropharynx clear - Routine Neck Exam Present: supple. Absent: lymphadenopathy, thyromegaly - Routine Respiratory Exam Present: Clear to auscultation bilaterally. Absent: rales, wheezes Comments: He does have about a 4 cm mass palpable on the left chest wall that is soft and rubbery that is consistent with a lipoma. - Routine Cardiovascular Exam Present: RRR, S1, S2. Absent: murmur - Routine Abdominal Exam Present: soft, normoactive bowel sounds. Absent: tenderness, organomegaly, mass - Routine Extremities Exam Absent: cyanosis, clubbing, edema - Routine Back/Spine Exam Back/Spine: Present: vertebral tenderness Comments: He does have moderate tenderness to palpation in the lumbar area. - Routine Skin Exam Present: intact. Absent: erythema, petechiae, rash - Routine Neurological Exam Present: alert, oriented X3 He needs to use his arms in rising from a chair. He does have decreased sensation to light touch over the left lateral thigh. He also has decreased strength on the left leg with the hip flexion and knee flexion. - Routine Psychiatric Exam Present: normal affect, normal thought process Assessment and Plan (1) Lung metastases Current visit: Yes Status: Acute The patient is a 73-year-old man with the recent MRI demonstrating widespread metastasis. He does have a mass in the kidney that may be the primary. He has possible bony metastasis as well. Will plan on getting a PET-CT to further evaluate the extent of his disease and to hopefully identify a biopsy target. Constellation of back pain with the numbness and weakness in the leg and a couple episodes of fecal incontinence suggest that he may have a cord compression. We will arrange for an MRI of the spine today. He will need IV pain medication prior to the procedure in order to be able to lie flat. He will return to clinic after these tests and hopefully more definitive treatment plan can be arranged then. If he does in fact have a cord compression, he would need steroids in an urgent referral to Radiation Oncology. In addition depending on the location and size lesion neuro surgical intervention could be considered.
[2018-08-07] MEDS: MORPHINE 10 MG/ML INJ 5 MG IV (11:56)
--- NOTE | 2018-08-15 11:24 | PC.NURSE ---
Pt is schedule for PET/CT today at 1430. He is concerned that 2 hydrocodone that was recommended he take prior to the scan will not be enough to cover his pain. I have asked him to come to the clinic today at 130p in hopes of maybe giving him some oral morphine to help him get thru his test. If you agree with this, please indicate an amount/dose for the morphine.
[2018-08-15] MEDS: MORPHINE 15 MG IR TABLET PO ×2 (12:57→13:00)
[2018-08-15 13:30] VITALS: BP 156/118; PULSE 96; RESP 16; TEMP 36.6; O2SAT 100
--- NOTE | 2018-08-15 13:31 | PC.NURSE ---
Carlos is in a great deal of pain, calling it a 7. Medicated with 30 mg PO morphine Sulfate while waiting for CT scan. wieh pt. and left unit in a w/c.
--- NOTE | 2018-08-16 14:47 | PC.NURSE ---
Pt has PET/CT scan done on 08/15. Dr Laura called to report emergent results regarding complete obstruction to the L kidney and an obstruction to the R kidney involving the ureter. Dr Laura stressed the need for a stent placement in order to keep pt from going into complete renal failure. I notified Dr Bautista of this and instructed for me to call the pt and ask him to proceed to the ED as soon as possible. Pt was contacted and he agreed to do so. Pt had called earlier about hiccup that he developed after his scan yesterday. He said they had completely resolved with pain medication.
[2018-08-21 09:34] VITALS: BP 149/89; PULSE 91; RESP 19; TEMP 36.9; O2SAT 99
--- NOTE | 2018-08-21 12:31 | P.PNONC_ITS ---
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 Interval history: The patient is a 73-year-old man who returns today for follow-up. He was seen here last couple of weeks ago. In that time, he did have an MRI of the spine done that did not show any evidence of cord compression. He had a PET-CT done that showed evidence of hydronephrosis. There was or bilateral pulmonary nodules that were metabolically active. He did have a lesion in the spine at L2. There is also some moderate uptake in some lymph nodes in the low abdomen are upper pelvis that were causing hydronephrosis. He was seen by urology and is scheduled to have stents placed on Monday. He has not yet had any biopsy. Since his last visit here, he has continued to struggle with back pain. He has been using hydrocodone. He takes 1 of that 10 mg tablets about every 4 hr and gets some relief with this. He has been tending towards constipation. His appetite has been quite poor. He is able to get down a little bit of Ensure but really does not like the taste. He denies any shortness of breath. No fevers or chills. He has not noted any adenopathy. Other than his back, he has not noted any other new aches or pains. His past medical history is notable for colon cancer about 10 years ago. He has a history of diabetes. He has a history of a prior meningioma. His medications include Tylenol Lipitor carvedilol hydrocodone losartan metformin nifedipine and Zofran. - Patient Self-Reported Symptoms SR Constitution: Weight loss/gain, Fatigue/Malaise SR respiratory issues: Cough SR Gastrointestinal issues: Poor or no appetite, Change in bowel pattern, Nausea , Vomiting, Abdominal pain SR Musculoskeletal issues: Muscle weakness, Muscle pain or cramps, Back or neck pain, Difficulty walking SR Neuro issues: Numbness or tingling, Difficulty balancing Home Medications and Allergies Home Medications Medication Instructions Recorded Confirmed Type atorvastatin [Lipitor] 10 mg PO DAILY #0 11/16/16 08/21/18 History losartan [Cozaar] 100 mg PO DAILY #0 11/16/16 08/21/18 History sitagliptin [Januvia] 100 mg PO DAILY #0 11/16/16 08/21/18 History carvedilol [Coreg] 25 mg PO QAM #0 01/01/17 08/21/18 History Contour Test Strips 06/26/18 08/16/18 History Probiotic 1 dose PO DIRECTED 06/26/18 08/21/18 History docusate sodium [Stool Softener] 100 mg PO BID 06/26/18 08/21/18 History ketoconazole 1 applic TOPICAL DAILY 06/26/18 08/21/18 History metformin 1,500 mg PO QPM 06/26/18 08/21/18 History metformin [Glucophage XR] 1,000 mg PO QAM 06/26/18 08/21/18 History nifedipine 60 mg PO BID 06/26/18 08/21/18 History acetaminophen 1,000 mg PO Q4H PRN MDD 4000 mg 08/16/18 08/21/18 History aspirin 81 mg PO DAILY 08/16/18 08/21/18 History carvedilol 12.5 mg PO QPM 08/16/18 08/21/18 History hydrocodone-acetaminophen 10 - 325 mg PO Q6H PRN 20 Days 08/21/18 08/21/18 Rx #120 tab prochlorperazine maleate 10 mg PO Q6-8H PRN #20 tab 08/21/18 08/21/18 Rx [Compazine] Allergies Allergy/AdvReac Type Severity Reaction Status Date / Time iodine AdvReac Mild NAUSEA Verified 08/16/18 15:52 Exam - Constitutional positive moderate distress, positive average body habitus Comments: He does appear uncomfortable. He requires frequent position changes. - Routine HEENT Exam Head: Present: normocephalic, atraumatic Eye: Present: EOMI, PERRL. Absent: conjunctival icterus ENT: Present: mucous membranes moist, oropharynx clear - Routine Neck Exam Present: supple. Absent: lymphadenopathy, thyromegaly - Routine Respiratory Exam Present: Clear to auscultation bilaterally. Absent: rales, wheezes - Routine Cardiovascular Exam Present: RRR, S1, S2. Absent: murmur - Routine Abdominal Exam Present: soft, normoactive bowel sounds. Absent: tenderness, mass - Routine Extremities Exam Absent: cyanosis, clubbing, edema - Routine Back/Spine Exam Back/Spine: Present: vertebral tenderness - Routine Skin Exam Present: intact. Absent: petechiae, rash - Routine Neurological Exam Present: alert, oriented X3 - Routine Psychiatric Exam Present: normal affect, normal thought process Assessment and Plan (1) Lung metastases Current visit: Yes Status: Acute The patient is a 73-year-old man with the recent MRI demonstrating widespread metastasis. His PET scan does not show any obvious primary. He does have hydronephrosis small have a stent placed. Will get him scheduled for a biopsy of either lung lesion or perhaps the L2 lesion. I did refill his hydrocodone. Will also make a referral to Radiation Oncology for treatment of his painful spinal lesion. He will return to clinic here after his biopsy. Hopefully at that time, we will have a tissue diagnosis be able to come up with a more definitive treatment plan.
--- NOTE | 2018-08-22 14:59 | PC.NURSE ---
Pharmacist from [facility] in [place] called to report that pt insurance [employer] is refusing to pay for pain meds for pt because they said it's too soon for meds to be filled. Noted that Mounika Daniel also prescribed Hydrocodone 10mg/325 mg of acetaminophen on 08/03 #120 tablets. states pt only has enough to last him through tonight. Pharmacist requesting that Dr Bautista be notified and check to see if ok to fill. states they will pay out of pocket to get the pain meds. Dr Bautista states he's fine with patient receiving the pain meds due to pt disease. Diagnosis code provided to pharmacist. Called to inform them that Dr Bautista is fine with the script being filled.
--- NOTE | 2018-08-28 09:03 | PC.NURSE ---
Addendum entered by Emilia Madrid R.N. 08/28/18 09:20: and patient called back and said to disregard the request for Dilaudid as pt states the hydrocodone he was on before his ER visit is more effective for pain control. Original Note: Received phone call from Zohreh that pt was seen in [facility] ER yesterday morning for c/o increased lower abd pain. Evaluated in ER by Dr Crum. ER changed his pain med prescription to Dilaudid and also gave him a script for ONdansetron at home. However, they only gave him a couple days supply and instructed him to get refills on these through his PCP. His PCP Mounika Daniel requested that oncology take over pain management. This note placed in Dr Bautista's box requesting a paper script for Dilaudid and a refill on Ondansetron.
--- NOTE | 2018-08-31 10:59 | PC.NURSE ---
Pt called saying he received a reminder letter for his 3 year colonoscopy. Pt is concerned that with his lung bx due on 09/03 the RAD therapy to his spine that there maybe to much going on. His next appt with Dr Bautista is 09/13 and I encouraged him to discuss it with him at that time. Since it was a reminder letter, I did tell him he had time.
[2018-09-03 08:32] LABS: Platelet Count 430 X10^3/uL (150-400)
[2018-09-03 08:40] LABS: INR 1.1 (0.9-1.3); Prothrombin Time 13.3 SECONDS (10.1-12.7)
[2018-09-03 11:22] LABS: BUN Creatinine Ratio 16.4 (6-22); Blood Urea Nitrogen 23 mg/dL (9-20); Calcium 10.1 mg/dL (8.4-10.2); Carbon Dioxide 25 mmol/L (22-32); Chloride 98 mmol/L (98-107); Glucose 202 mg/dL (80-110); HEMOLYSIS < 15 (0-50); Magnesium 1.5 mg/dL (1.6-2.3); Potassium 5.1 mmol/L (3.4-5.1); Sodium 140 mmol/L (137-145)
--- NOTE | 2018-09-07 10:25 | PC.NURSE ---
Dr John Paul Mustafa from [facility] pathology called to report that the left lung mass that was biopsied is + adenocarcinoma with a colonic phenotype. His cell phone is [phone] Bautista have any questions. Dr Bautista has an appt scheduled with pt on 09/[address] Mustafa states he will be faxing the results to us today so will make sure these are available to Dr Bautista for this next appt with pt.
--- NOTE | 2018-11-05 14:26 | ONC.NAV ---
*Sent bereavement card.
== END ==
PROVIDERS: PCP Physician Assistant
DX: C80.1 Malignant (primary) neoplasm, unspecified (principal)
CPT/HCPCS: 36415; 72158; 80048; 83735; 85049; 85610; 96374; 96376; 99205; 99214; 99215; A9579; J2270

== ENCOUNTER 2018-09-03 08:30 | Day surgery (SDC) | payer MEDICARE, OTHER, SELFPAY ==
[2018-09-03] VITALS (14 sets, daily range): BP systolic 135–204; BP diastolic 81–111; PULSE 75–101; RESP 13–28; TEMP 36.2–37.2; O2SAT 97–100; BMI 24.3
--- NOTE | 2018-09-03 | DI.CT.S_ITS ---
PROCEDURE: CT BIOPSY LUNG LT Sedation analgesia for 15 minutes. INDICATIONS: LUNG METASTASTIS TECHNIQUE: The indications, alternatives, benefits, risks, and possible complications of the procedure were communicated to the patient. Informed written consent from the patient was obtained and placed in the chart. Continuous EKG and hemodynamic monitoring was started by trained personnel. The patient was brought to the CT suite and mental measurements teacher spiral CT imaging was performed with localization grid. The appropriate site for percutaneous access to the biopsy target was marked, was prepped and draped sterilely, and was infused with local anaesthesia. Under CT guidance, a core biopsy trocar and needle set was advanced to the biopsy target, and specimen(s) were obtained. The trocar and needle were then removed, and the patient was sent for post-procedure monitoring. COMPARISON: None. FINDINGS: Biopsy site: Left lower lobe nodule Needle: 20 gauge biopsy needle with introducer trocar. Number of passes: 3 Medications: 1% lidocaine for local anaesthesia. IV Fentanyl and Versed for conscious sedation for 15 minutes (see nursing record). Complications: None. IMPRESSION: Successful CT-guided biopsy of left lower lobe nodule. Dictated by: Aj Messina M.D. on 09/03/2018 at 14:54 Approved by: Aj Messina M.D. on 09/03/2018 at 14:55
--- NOTE | 2018-09-03 | PATH_ITS ---
[facility] Accession Number: [id number] . 01 Material submitted: . LEFT LUNG . 01 Clinical history: . LLL MASS . 01 Diagnosis: Left Lower Lobe Lung Mass, Needle Core Biopsies: Adenocarcinoma with colonic immunophenotype; please see comment. MRV/09/07/2018 . 01 Comment: The carcinoma has a colonic immunophenotype. This finding raises the possibility of metastasis from a colonic primary. However, other gastrointestinal primaries or an enteric phenotype lung primary are not excluded on histologic grounds. Correlation with clinical, imaging and endoscopic findings remain the best method for determining primary site. If this lesion is clinically favored to be a lung primary, molecular studies can be performed upon request. . The finding of colonic immunophenotype adenocarcinoma was reported by Dr. John Paul Mustafa to Dr. Bautista's triage nurse, Trena, on 09/07/2018 at 10:10 a.m. . 01 Electronically signed: . John Paul Mustafa MD, PhD, Pathologist NPI- [id number] . 01 Gross description: . Received in one formalin-filled container labeled with the patient's name and labeled LLL mass, are four 0.1 cm in diameter, cylindrical-shaped portions of tissue which range in length from 0.2 cm to 0.6 cm. The specimen is entirely submitted in one cassette. ([id number]) /FRR . 01 Microscopic: . Sections are of fibrotic stroma infiltrated by atypical glandular structures with luminal necrosis, consistent with adenocarcinoma. To further evaluate the carcinoma cells, a limited panel of immunohistochemical stains is performed (each with an appropriately positive control), with the following findings: . Cytokeratin 7: Negative. Cytokeratin 20: Positive. CDX2: Positive. Villin: Positive. Napsin-A: Negative. TTF1: Negative. PSA: Negative. . The morphology and immunoprofile are consistent with colonic-type adenocarcinoma. . * This test was developed and its performance characteristics determined by [employer]. It has not been cleared or approved by the U.S. Food and Drug Administration. The FDA has determined that such clearance or approval is not necessary. This test is used for clinical purposes. It should not be regarded as investigational or for research. . 01 Pathologist provided ICD-10: C34.32 . 01 CPT . 908121, R98113, L42650 Performed at: 01 [facility] [address] [place] [address], [place], [place] [id number] MD Ciaran Henriquez MD Phone: [phone]
--- NOTE | 2018-09-03 11:10 | SUR.PHASEII ---
pt returned to unit, report from davin roberts intact to r lower chest. pt placed on continuous sat monitor showing 96% and greater on room air.
--- NOTE | 2018-09-03 11:17 | SUR.PHASEII ---
pt returned to unit, placed on continuous pulse ox. bandaid intact to l mid back. sats 96% and greater on room air
--- NOTE | 2018-09-03 11:55 | DI.RAD.S_ITS ---
PROCEDURE: XR CHEST 1V INDICATIONS: post lung biopsy TECHNIQUE: One view of the chest was acquired. COMPARISON: [facility], CR, XR CHEST 1V, 06/26/2018, 15:30. FINDINGS: Surgical changes and devices: None. Lungs and pleura: No pleural effusions or pneumothorax. Redemonstration of multiple pulmonary nodules, largest again seen left lower lobe. Mediastinum: Mediastinal contours appear normal. Heart size is normal. Bones and chest wall: No suspicious bony lesions. Overlying soft tissues appear unremarkable. IMPRESSION: No pneumothorax, status post left lung CT guided biopsy. Dictated by: Aj Messina M.D. on 09/03/2018 at 12:23 Approved by: Aj Messina M.D. on 09/03/2018 at 12:24
--- NOTE | 2018-09-03 12:00 | SUR.PHASEII ---
to xray with sonny, no complaints from pt. sats maintained on room air.
[2018-09-03] MEDS: fentaNYL 100 MCG/2 ML INJ IV (12:05)
[2018-09-03] MEDS: MIDAZOLAM 2 MG/2 ML VIAL 1 MG IV (12:06)
== END 2018-09-03 13:10 ==
PROVIDERS: Family Provider Physician Assistant; PCP Physician Assistant
PROC: BB24ZZZ Computerized Tomography (CT Scan) of Bilateral Lungs (ICD-10-PCS; CPT 32408; principal; 2018-09-03 09:30)
DX: C34.32 Malignant neoplasm of lower lobe, left bronchus or lung (principal); E11.9 Type 2 diabetes mellitus without complications; I10 Essential (primary) hypertension; E78.5 Hyperlipidemia, unspecified; Z87.891 Personal history of nicotine dependence; Z85.038 Personal history of other malignant neoplasm of large intestine; Z79.84 Long term (current) use of oral hypoglycemic drugs
CPT/HCPCS: 32405; 36415; 71045; 77012; 80048; 83735; 85049; 85610; 88305; 88341; 88342; J2250; J3010

== ENCOUNTER 2018-09-09 09:54 | Emergency (ER) | payer MEDICARE, OTHER, SELFPAY ==
[2018-09-09 10:05] VITALS: BP 193/103; PULSE 85; RESP 20; TEMP 36.8; O2SAT 100; BMI 24.4
[2018-09-09 10:46] VITALS: BP 193/104; PULSE 71
[2018-09-09] MEDS: MORPHINE 4 MG/ML INJ IV (10:46)
[2018-09-09] MEDS: PROCHLORPERAZINE 10 MG/2 ML VIAL IV (10:46)
[2018-09-09 11:30] VITALS: BP 155/97; PULSE 89; RESP 12; O2SAT 94
[2018-09-09 12:30] VITALS: BP 166/87; PULSE 98; RESP 13; O2SAT 97
[2018-09-09] MEDS: OXYCODONE IR 5 MG TABLET PO (12:34)
--- NOTE | 2018-09-09 12:48 | ED_ITS ---
HPI - Back Pain/Injury General Chief Complaint: Back Pain/Injury Stated Complaint: LUMBAR AND LT LEG PAIN,CANCER PT Time Seen by Provider: 09/09/18 10:09 Source: patient and family Mode of arrival: ambulatory Limitations: no limitations History of Present Illness HPI Narrative: 73M with hx of metastatic cancer and spinal involvement presents to the emergency department today with a chief complaint of worsening lumbar pain. He is under the care of local oncology and Radiation Oncology at [facility]. He has underwent 3 doses of radiation with a planned 10. He states his pain has worsened since the 3rd dose. He has numbness and tingling down his left leg and minor weakness. He denies any change in bowel or bladder. His last MRI was mid July. He denies fever or chills nor any recent injury. He takes oral Dilaudid home. MD Complaint: back pain Onset (ago): day(s) Duration: constant Similar Symptoms Previously: Yes Location: lumbar spine Severity: severe Quality: burning, sharp and stabbing Radiation: left leg Relieving factors: none Exacerbating factors: movement Associated symptoms: weakness and difficulty walking Related Data Home Medications Medication Instructions Recorded Confirmed atorvastatin [Lipitor] 10 mg PO DAILY #0 11/16/16 09/03/18 losartan [Cozaar] 100 mg PO DAILY #0 11/16/16 09/03/18 sitagliptin [Januvia] 100 mg PO DAILY #0 11/16/16 09/03/18 carvedilol [Coreg] 25 mg PO QAM #0 01/01/17 09/03/18 Contour Test Strips 06/26/18 08/16/18 Probiotic 1 dose PO DIRECTED 06/26/18 08/21/18 docusate sodium [Stool Softener] 100 mg PO BID 06/26/18 08/21/18 metformin 1,500 mg PO QPM 06/26/18 08/21/18 metformin [Glucophage XR] 1,000 mg PO QAM 06/26/18 09/03/18 nifedipine 60 mg PO BID 06/26/18 08/21/18 acetaminophen 1,000 mg PO Q4H PRN MDD 4000 mg 08/16/18 08/21/18 carvedilol 12.5 mg PO QPM 08/16/18 09/03/18 Previous Rx's Medication Instructions Recorded hydrocodone-acetaminophen 10 - 325 mg PO Q6H PRN 20 Days 08/21/18 #120 tab prochlorperazine maleate 10 mg PO Q6-8H PRN #20 tab 08/21/18 [Compazine] oxycodone 5 mg PO Q4-6H PRN #60 tab 09/09/18 Allergies Allergy/AdvReac Type Severity Reaction Status Date / Time iodine AdvReac Mild NAUSEA Verified 09/09/18 10:05 Review of Systems Review of Systems All systems reviewed & are unremarkable except as noted in HPI and below Constitutional Denies chills, Denies fever(s), Denies lethargy and Denies weakness Eyes Denies change in vision, Denies eye discharge, Denies irritation and Denies loss of vision ENT Ears, Nose, Mouth, and Throat: Denies change in voice, Denies neck pain and Denies sore throat Cardiovascular Denies chest pain, Denies irregular heart rhythm, Denies lightheadedness, Denies palpitations, Denies dyspnea, Denies dyspnea on exertion and Denies orthopnea Respiratory Denies cough, Denies dyspnea, Denies dyspnea on exertion and Denies wheezing Gastrointestinal Gastrointestinal: Denies abdominal pain, Denies change in bowel habits, Denies diarrhea, Denies nausea and Denies vomiting Genitourinary Denies hematuria, Denies flank pain, Denies urinary incontinence and Denies urinary urgency Musculoskeletal Reports back pain, Denies neck pain and Reports tingling Integumentary/Breasts Denies pruritus, Denies erythema, Denies rash and Denies wounds Neurologic Denies confusion, Denies loss of vision, Reports sensory deficit, Reports tingling, Reports paresthesias and Denies weakness Psychiatric Denies anxiety, Denies confusion, Denies depression, Denies homicidal ideation and Denies suicidal ideation Endocrine Denies palpitations Hematologic/Lymphatic Denies easy bruising Allergic/Immunologic Denies wheezing PFSH Medical History Colon cancer (Acute) Lung cancer (Acute) Malignant neoplasm metastatic to lumbar spine with unknown primary site (Acute) Social History household members: spouse Smoking Status: Never smoker Exam Narrative Exam Narrative: 73-year-old male, chronically ill, obviously in significant pain Initial Vital Signs Initial Vital Signs: Vital Signs Temperature 98.2 F 09/09/18 10:05 Pulse Rate 85 09/09/18 10:05 Respiratory Rate 20 09/09/18 10:05 Blood Pressure 193/103 H 09/09/18 10:05 Pulse Oximetry 100 09/09/18 10:05 Const General: cooperative, well developed and acute distress Nutritional Appearance: average body habitus Orientation: alert, awake, oriented x3 and not confused [facility] Head: normocephalic and atraumatic Ears: external ears normal and TM's normal bilaterally Nose: external nose normal and No nasal discharge Face and sinus: sinuses nontender, face symmetric, no sinus tenderness and No dry mucous membranes Mouth: oral mucosae normal and moist mucous membranes Teeth and gingiva: dentition normal Throat: tonsils normal and uvula midline Eyes General: appearance normal, both eyes and all related structures Eyelids: eyelids normal Conjunctivae: conjunctivae normal Sclera: sclerae normal Pupils: PERRL EOM: EOM intact bilaterally Neck Neck: normal visual inspection, trachea midline, No lymphadenopathy, No midline deformity and No JVD Lymphatic: No lymphedema Resp Effort & Inspection: normal respiratory effort, able to speak in complete sentences, no respiratory distress and no use of accessory muscles Auscultation: clear to auscultation bilaterally, no rales, no rhonchi and no wheezes Cardio Rate: regular rate Rhythm: regular rhythm Heart Sounds: no click, no gallops, no murmurs and no rubs Pulses: normal peripheral pulses Back/Spine/Pelvis Back: back tenderness Thoracic/Lumbar Spine: straight leg raise positive Other: 4/5 muscle strength left lower extremity with some decreased sensation. No saddle anesthesia. Patellar Reflex decreased on left lower extremity Skin General: no rashes or lesions noted, No jaundice and No petechiae Neuro General: alert, awake and oriented x3 Motor: No strength 5/5 throughout Sensory Exam: lower extremity Course Orders Ordered: Discontinued Medications Morphine Sulfate (Morphine Sulfate) 5 mg IV NOW ONE Stop: 09/09/18 10:21 Last Admin: 09/09/18 10:46 Dose: Not Given Morphine Sulfate (Morphine) 4 mg IV NOW ONE Stop: 09/09/18 10:46 Last Admin: 09/09/18 10:46 Dose: 4 mg Oxycodone HCl (Percolone) 5 mg PO NOW ONE Stop: 09/09/18 12:04 Last Admin: 09/09/18 12:34 Dose: 5 mg Prochlorperazine (Compazine) 10 mg IV NOW ONE Stop: 09/09/18 10:21 Last Admin: 09/09/18 10:46 Dose: 10 mg Reevaluation(s) Reevaluation #1: moderate improvement with Morphine. Patient really wants to go home and will switch to oral. Consultations Consultation #1: call to Radiation Oncology at [facility] - given no signs or symptoms of acute cord compression or cauda equina pain control is a goal and can follow up as planned Vital Signs - 8 hr 09/09/18 10:05 09/09/18 10:46 09/09/18 11:30 Temperature 98.2 F Pulse Rate 85 71 89 Respiratory Rate 20 12 Blood Pressure 193/103 H 193/104 H Blood Pressure [Left Arm] 155/97 H Pulse Oximetry 100 94 09/09/18 12:30 09/09/18 13:30 Temperature Pulse Rate 98 H 90 Respiratory Rate 13 15 Blood Pressure Blood Pressure [Left Arm] 166/87 H 126/75 Pulse Oximetry 97 96 MDM - Back Pain/Injury MDM Narrative Medical decision making narrative: Patient presents with terrible low back pain in the setting of known metastatic disease. He is currently undergoing radiation therapy. He has no new signs suggesting cord compression or cauda equina, all neurologic symptoms are noted on prior exams including tingling and some left leg weakness in addition to the pain which radiates from the low back into left leg. Discharge Plan Departure Patient Disposition: Home Clinical Impression: Lumbar back pain with radiculopathy affecting left lower extremity Discharge Date/Time: 09/09/18 13:53 Interventions: ED Discharge Assessment Last Done: 09/09/18 13:53 Instructions: DI for Lumbar Radiculopathy Activity Restrictions/Additional Instructions: *You have been diagnosed with [ acute on chronic lumbar pain due to metastases ] *What to do: *Take medications as directed *Follow up with your oncology team as planned *Return to ER if you should have any new, worsening or concerning symptoms , such as [ worsening numbness, tingling, weakness, loss of control of bowel or bladder] Prescriptions: New oxycodone 5 mg tablet 5 mg PO Q4-6H PRN (Reason: pain) Qty: 60 RF: 0 No Action losartan [Cozaar] 100 MG tablet 100 mg PO DAILY Qty: 0 RF: 0 sitagliptin [Januvia] 100 MG tablet 100 mg PO DAILY Qty: 0 RF: 0 atorvastatin [Lipitor] 10 MG tablet 10 mg PO DAILY Qty: 0 RF: 0 carvedilol [Coreg] 12.5 MG tablet 25 mg PO QAM Qty: 0 RF: 0 nifedipine 60 mg tablet extended release 60 mg PO BID RF: 0 metformin [Glucophage XR] 500 mg tablet extended release 24 hr 1,000 mg PO QAM RF: 0 Contour Test Strips RF: 0 docusate sodium [Stool Softener] 100 mg Capsule 100 mg PO BID RF: 0 metformin 500 mg tablet extended release 24 hr 1,500 mg PO QPM RF: 0 Probiotic 1 dose PO DIRECTED RF: 0 hydrocodone-acetaminophen 10-325 mg Tablet 10 - 325 mg PO Q6H PRN (Reason: Breakthrough Pain) 20 Days Qty: 120 RF: 0 prochlorperazine maleate [Compazine] 10 mg Tablet 10 mg PO Q6-8H PRN (Reason: Nausea) Qty: 20 RF: 3 carvedilol 12.5 mg tablet 12.5 mg PO QPM RF: 0 acetaminophen 500 mg Tablet 1,000 mg PO Q4H MDD 4000 mg PRN (Reason: pain) RF: 0
[2018-09-09 13:30] VITALS: BP 126/75; PULSE 90; RESP 15; O2SAT 96
== END 2018-09-09 13:53 | disposition home or self-care (01) ==
PROVIDERS: Emergency Provider Emergency Medicine; Family Provider Physician Assistant; PCP Physician Assistant
DX: M54.16 Radiculopathy, lumbar region (principal)
CPT/HCPCS: 36591; 96374; 96375; 99283; 99284; J0780; J2270